=== PATIENT | female | born 1980 | race Caucasian/White ===

== ENCOUNTER 2017-04-06 18:16 | Emergency (ER) | payer MEDICAID ==
[~2017-04-06] VITALS: Ht 167.6 cm; Wt 64.0 kg
[2017-04-06 18:53] LABS: BASOPHILS % 0.7 % (0.0-2.0); EOSINOPHILS % 3.9 % (0.0-5.0); HEMATOCRIT. 38.5 % (36.0-48.0); HEMOGLOBIN. 13.1 g/dL (12.0-16.0); LYMPHOCYTES % 24.6 % (20.0-50.0); MEAN CORPUSCULAR VOLUME 94.3 fL (81.0-99.0); MEAN PLATELET VOLUME 11.1 fl (7.4-10.4); MONOCYTES % 8.5 % (2.0-8.0); NEUTROPHILS % 62.3 % (40.0-76.0); PLATELET 207 x1000/uL (130-400); RED BLOOD CELL COUNT 4.08 mill/uL (4.2-5.4); RED CELL DISTRIBUTION WIDTH 12.8 % (11.6-14.6)
[2017-04-06 18:59] LABS: PROTHROMBIN TIME 10.1 sec (9.4-11.6)
[2017-04-06 19:05] LABS: CARBON DIOXIDE 21 mEq/L (21-32); CHLORIDE 110 mEq/L (98-107)
[2017-04-06] MEDS ORDERED: SODIUM CHLORIDE 0.9% 1,000 ML IV ONE ×2 (19:30→20:15)
[2017-04-06] MEDS ORDERED: KETOROLAC 30MG/ML VIAL IV ONE (19:45)
[2017-04-06] MEDS ORDERED: ACETAMINOPHEN WITH CODEINE 120-12MG/5ML UDC PO ONE (20:00)
[2017-04-06] MEDS ORDERED: LORAZEPAM 2MG/ML CPJ IV ONE (20:15)
[2017-04-06 23:28] VITALS: BP 112/73
== END 2017-04-07 00:05 | disposition home or self-care (01) ==
LOC: ER 18:49
DX: J45.909 Unspecified asthma, uncomplicated (principal); R05 Cough; R06.02 Shortness of breath
CPT/HCPCS: 36415; 71010; 80053; 83605; 85025; 85610; 87040; 93005; 96361; 96374; 96375; 99285; J1885; J2060; J7030; Z7610